=== PATIENT | male | born 1945 | race Hispanic/Latino ===

== ENCOUNTER 2017-07-26 11:34 | Emergency (ER) | payer OTHER ==
[~2017-07-26 11:34] MED LIST: AMLO1CAP12 PO; ASPI-1005 PO; ATOR10 PO; CIPR-279 PO; LANS1COM10 PO; METF500T6 PO
[2017-07-26] MEDS ORDERED: SODIUM CHLORIDE 0.9% 1000ML 1,000 ML IV ONE (12:03)
[2017-07-26] MEDS ORDERED: ACETAMINOPHEN EXTRA STRENGTH 500 MG TABLET ONE (12:03)
[2017-07-26] MEDS ORDERED: ONDANSETRON HCL 4 MG/2 ML VIAL ONE ×2 (12:03→12:43)
[2017-07-26 12:14] LABS: BASOPHILS % (AUTO) 0.5 % (0.0-5.0); EOSINOPHILS % (AUTO) 1.2 % (0.0-8.0); HEMATOCRIT 46.4 % (42-54); LYMPHOCYTES % (AUTO) 18.1 % (21.0-51.0); MEAN CORPUSCULAR HEMOGLOBIN 29.6 pg (27.0-33.0); MEAN CORPUSCULAR HGB CONC 33.4 g/dL (32.0-36.0); MEAN CORPUSCULAR VOLUME 88.6 fL (79-99); MONOCYTES % (AUTO) 6.1 % (3.0-13.0); NEUTROPHILS % (AUTO) 74.1 % (40.0-77.0); PLATELET COUNT (AUTO) 222 K/uL (130-400); RED BLOOD CELL COUNT(AUTO) 5.24 MIL/uL (4.50-6.20); RED CELL DISTRIBUTION WIDTH 15.1 % (11.0-15.5); WHITE BLOOD COUNT (AUTO) 13.9 K/uL (4.8-10.8)
[2017-07-26 12:34] LABS: CREATININE 0.8 mg/dL (0.5-1.5); POTASSIUM 3.4 mmol/L (3.5-5.1)
[2017-07-26 12:38] LABS: ALBUMIN 3.3 g/dL (3.5-5.0); BILIRUBIN,TOTAL 0.7 mg/dL (0.2-1.0); TOTAL PROTEIN, SERUM 7.1 g/dL (6.0-8.3)
[2017-07-26 15:42] LABS: APPEARANCE,URINE Clear (CLEAR); BILIRUBIN,URINE Negative (NEGATIVE); COLOR,URINE Yellow (YELLOW); GLUCOSE, URINE (UA) Negative (NEGATIVE); KETONES,URINE Negative (NEGATIVE); LEUKOCYTE ESTERASE ,URINE Negative (NEGATIVE); NITRATE,URINE Negative (NEGATIVE); OCCULT BLOOD,URINE Negative (NEGATIVE); PROTEIN,URINE Negative (NEGATIVE); UROBILINOGEN,URINE 0.2 mg/dL (0.2-1.0)
== END 2017-07-26 16:26 | disposition home or self-care (01) ==
LOC: EDH 11:34
DX: K52.9 Noninfective gastroenteritis and colitis, unspecified (principal); I25.10 Atherosclerotic heart disease of native coronary artery without angina pectoris; E11.9 Type 2 diabetes mellitus without complications; I10 Essential (primary) hypertension; E78.5 Hyperlipidemia, unspecified; Z98.890 Other specified postprocedural states
CPT/HCPCS: 36415; 74176; 80053; 81003; 82150; 83690; 85025; 93005; 96361; 96374; 96376; 99285; J2405 ×2; J7030

== ENCOUNTER 2017-08-10 09:20 | Inpatient (IN) | payer OTHER ==
[2017-08-10 09:44] LABS: BASOPHILS % (AUTO) 0.7 % (0.0-5.0); EOSINOPHILS % (AUTO) 0.7 % (0.0-8.0); HEMATOCRIT 41.6 % (42-54); LYMPHOCYTES % (AUTO) 27.6 % (21.0-51.0); MEAN CORPUSCULAR HEMOGLOBIN 29.7 pg (27.0-33.0); MEAN CORPUSCULAR VOLUME 87.5 fL (79-99); MONOCYTES % (AUTO) 7.6 % (3.0-13.0); NEUTROPHILS % (AUTO) 63.4 % (40.0-77.0); PLATELET COUNT (AUTO) 200 K/uL (130-400); RED BLOOD CELL COUNT(AUTO) 4.76 MIL/uL (4.50-6.20); WHITE BLOOD COUNT (AUTO) 13.2 K/uL (4.8-10.8)
[2017-08-10 10:00] LABS: CREATININE 0.7 mg/dL (0.5-1.5); POTASSIUM 3.5 mmol/L (3.5-5.1)
[2017-08-10 10:05] LABS: ALBUMIN 3.5 g/dL (3.5-5.0); BILIRUBIN,TOTAL 0.4 mg/dL (0.2-1.0); TOTAL PROTEIN, SERUM 7.4 g/dL (6.0-8.3)
[2017-08-10 10:57] LABS: B-TYPE NATRIURETIC PEPTIDE 278 pg/mL (0-100)
[2017-08-10 11:00] LABS: APPEARANCE,URINE Clear (CLEAR); BILIRUBIN,URINE Negative (NEGATIVE); COLOR,URINE Yellow (YELLOW); GLUCOSE, URINE (UA) Negative (NEGATIVE); KETONES,URINE Negative (NEGATIVE); LEUKOCYTE ESTERASE ,URINE Negative (NEGATIVE); NITRATE,URINE Negative (NEGATIVE); OCCULT BLOOD,URINE Negative (NEGATIVE); PROTEIN,URINE POS 1+ (NEGATIVE); UROBILINOGEN,URINE 0.2 mg/dL (0.2-1.0)
[2017-08-10 11:30] LABS: BACTERIA,URINE Rare /HPF (None Seen); RBC,URINE None Seen /HPF (0-1); SQUAMOUS EPITHELIAL CELL,UR None Seen /HPF (0-2); WBC,URINE None Seen /HPF (0-1)
[2017-08-10] MEDS ORDERED: ASPIRIN 325MG EC TAB 325 MG TABLET.DR PO ONE (12:20)
[2017-08-10] MEDS ORDERED: ONDANSETRON HCL 4 MG/2 ML VIAL IVP PRN (12:30)
[2017-08-10] MEDS ORDERED: HYDRALAZINE HCL 20 MG/ML VIAL IV PRN (12:30)
[2017-08-10] MEDS ORDERED: ACETAMINOPHEN 325 MG TAB PO PRN ×2 (12:30)
[2017-08-10 14:26] VITALS: BP 188/108
[2017-08-10] MEDS ORDERED: GLIP5TAB11 PO (14:30)
[2017-08-10] MEDS ORDERED: FISH1CAP27 PO (14:30)
[2017-08-10] MEDS ORDERED: METF10004 PO (14:30)
[2017-08-10 16:00] VITALS: BP 130/80
[2017-08-10 17:34] LABS: CREATINE KINASE MB 3.2 ng/mL (0.5-3.6); TROPONIN I 0.15 ng/mL (0.00-0.06)
[2017-08-10 20:14] VITALS: BP 142/84
[2017-08-10] MEDS ORDERED: POTASSIUM CHLORIDE 10% ELIXIR 20 MEQ/15 ML UDCUP PO PRN ×2 (22:15)
[2017-08-10] MEDS ORDERED: POTASSIUM CHLORIDE 20 MEQ ERTAB PO PRN ×2 (22:15)
[2017-08-10] MEDS ORDERED: GLUCAGON 1MG KIT 1 MG ML IM PRN (22:15)
[2017-08-10] MEDS ORDERED: POTASSIUM CHLORIDE 20MEQ/100ML 100 ML IV PRN ×2 (22:15)
[2017-08-10] MEDS ORDERED: LIDOCAINE HCL-MPF 1% 2ML VIAL IVP PRN ×2 (22:15)
[2017-08-10] MEDS ORDERED: DEXTROSE 50%-WATER 50 ML DISP.SYRIN IV PRN (22:15)
[2017-08-10] MEDS ORDERED: MORPHINE SULFATE 2 MG/ML 1ML SYG IVP PRN (22:15)
[2017-08-10] MEDS ORDERED: FAMOTIDINE 20MG TAB 20 MG TAB ONE (22:28)
[2017-08-10] MEDS ORDERED: NITROGLYCERIN 1GM/1 INCH PACKET TD ONE (22:32)
[2017-08-10] MEDS ORDERED: SODIUM CHLORIDE 0.9% 1000ML 1,000 ML IV ONE (22:33)
[2017-08-10] MEDS ORDERED: POTASSIUM CHLORIDE 20 MEQ ERTAB PO ONE (22:34)
[2017-08-10] MEDS ORDERED: FUROSEMIDE 10 MG/ML 2ML VIAL ONE (22:39)
[2017-08-10] MEDS: INSULIN HUMULIN R 100 UNIT/ML 3ML SQ SCH (23:09)
[2017-08-10] MEDS: SODIUM CHLORIDE 0.9% 1000ML 1,000 ML IV SCH (23:10)
[2017-08-10] MEDS: FAMOTIDINE 20MG TAB 20 MG TAB PO SCH (23:10)
[2017-08-10] MEDS: FUROSEMIDE 10 MG/ML 2ML VIAL IV SCH (23:10)
[2017-08-10] MEDS: NITROGLYCERIN 1GM/1 INCH PACKET TD SCH (23:10)
[2017-08-10 23:41] LABS: CREATINE KINASE MB 2.4 ng/mL (0.5-3.6); TROPONIN I 0.15 ng/mL (0.00-0.06)
[2017-08-11] VITALS (7 sets, daily range): BP systolic 101–165; BP diastolic 34–107
[2017-08-11 03:44] LABS: HEMATOCRIT 39.7 % (42-54); MEAN CORPUSCULAR HEMOGLOBIN 30.4 pg (27.0-33.0); MEAN CORPUSCULAR HGB CONC 34.4 g/dL (32.0-36.0); MEAN CORPUSCULAR VOLUME 88.1 fL (79-99); PLATELET COUNT (AUTO) 187 K/uL (130-400); RED BLOOD CELL COUNT(AUTO) 4.51 MIL/uL (4.50-6.20); RED CELL DISTRIBUTION WIDTH 14.6 % (11.0-15.5); WHITE BLOOD COUNT (AUTO) 12.2 K/uL (4.8-10.8)
[2017-08-11 03:49] LABS: CREATININE 0.8 mg/dL (0.5-1.5); POTASSIUM 4.2 mmol/L (3.5-5.1)
[2017-08-11 04:15] LABS: BAND NEUTROPHILS % (MANUAL) 1 % (0-2); LYMPHOCYTES % (MANUAL) 30 % (22-44); MAN.DIFF COMMENT-IMPRESSION MANUAL DIFFERENTIAL; MONOCYTES % (MANUAL) 12 % (2-9); PLATELET MORPHOLOGY COMMENT ADEQUATE; REACTIVE LYMPHOCYTES 4 % (0-0); SEGMENTED NEUTROPHILS % 53 % (40-70)
[2017-08-11] MEDS: NITROGLYCERIN 1GM/1 INCH PACKET TD SCH ×3 (04:15→17:59)
[2017-08-11] MEDS: GLIPIZIDE 5 MG TABLET PO SCH (06:06)
[2017-08-11] MEDS: INSULIN HUMULIN R 100 UNIT/ML 3ML SQ SCH ×3 (06:39→22:34)
[2017-08-11] MEDS: METFORMIN HCL 500 MG TABLET PO SCH ×2 (08:00→17:59)
[2017-08-11] MEDS ORDERED: AMLODIPINE-BENAZEPRIL 5-20 MG PO SCH (09:00)
[2017-08-11] MEDS ORDERED: ASPIRIN 325 MG TABLET PO SCH (09:00)
[2017-08-11] MEDS: ASPIRIN 81 MG EC TAB PO SCH (10:41)
[2017-08-11] MEDS: BENAZEPRIL HCL 10 MG TABLET PO SCH (10:42)
[2017-08-11] MEDS: AMLODIPINE BESYLATE 5 MG TAB PO SCH (10:42)
[2017-08-11] MEDS: FAMOTIDINE 20MG TAB 20 MG TAB PO SCH ×2 (10:43→21:57)
[2017-08-11] MEDS: ENOXAPARIN SODIUM 40 MG/0.4 ML SYRINGE SQ SCH (10:48)
[2017-08-11] MEDS ORDERED: REGADENOSON 0.4 MG/5 ML PF SYG IVP SCH (11:00)
[2017-08-11] MEDS: SODIUM CHLORIDE 0.9% 1000ML 1,000 ML IV SCH (11:35)
[2017-08-11] MEDS: ATORVASTATIN CALCIUM 20 MG TABLET PO SCH (21:57)
[2017-08-11] MEDS: FUROSEMIDE 10 MG/ML 2ML VIAL IV SCH (22:15)
[2017-08-12] MEDS: SODIUM CHLORIDE 0.9% 1000ML 1,000 ML IV SCH ×2 (00:55→14:15)
[2017-08-12] MEDS: NITROGLYCERIN 1GM/1 INCH PACKET TD SCH ×5 (04:15→22:15)
[2017-08-12 04:34] VITALS: BP 135/83
[2017-08-12] MEDS: INSULIN HUMULIN R 100 UNIT/ML 3ML SQ SCH ×4 (06:32→21:00)
[2017-08-12] MEDS: GLIPIZIDE 5 MG TABLET PO SCH (06:36)
[2017-08-12] MEDS: METFORMIN HCL 500 MG TABLET PO SCH ×2 (08:00→17:00)
[2017-08-12 08:09] VITALS: BP 139/75
[2017-08-12] MEDS: ASPIRIN 81 MG EC TAB PO SCH (09:00)
[2017-08-12] MEDS: ENOXAPARIN SODIUM 40 MG/0.4 ML SYRINGE SQ SCH (09:00)
[2017-08-12 10:19] LABS: INR 1.04 (0.85-1.15); PARTIAL THROMBOPLASTIN TIME 26.5 SEC (26.3-35.5); PROTHROMBIN TIME 10.9 SEC (9.6-11.6)
[2017-08-12] MEDS: BENAZEPRIL HCL 10 MG TABLET PO SCH (10:48)
[2017-08-12] MEDS: AMLODIPINE BESYLATE 5 MG TAB PO SCH (10:48)
[2017-08-12] MEDS: FAMOTIDINE 20MG TAB 20 MG TAB PO SCH ×2 (10:48→21:14)
[2017-08-12] MEDS ORDERED: FUROSEMIDE 10 MG/ML 2ML VIAL IV SCH (11:15)
[2017-08-12 12:16] VITALS: BP 162/88
[2017-08-12 16:00] VITALS: BP 124/82
[2017-08-12 19:55] VITALS: BP 113/72
[2017-08-12] MEDS: ATORVASTATIN CALCIUM 20 MG TABLET PO SCH (21:14)
[2017-08-12] MEDS: FUROSEMIDE 10 MG/ML 2ML VIAL IV SCH (22:15)
[2017-08-12 23:13] VITALS: BP 133/78
[2017-08-13] VITALS (11 sets, daily range): BP systolic 111–155; BP diastolic 62–87
[2017-08-13] MEDS: SODIUM CHLORIDE 0.9% 1000ML 1,000 ML IV SCH ×2 (03:35→18:24)
[2017-08-13] MEDS: NITROGLYCERIN 1GM/1 INCH PACKET TD SCH ×4 (04:15→22:27)
[2017-08-13 05:06] LABS: CREATININE 0.9 mg/dL (0.5-1.5); POTASSIUM 3.9 mmol/L (3.5-5.1)
[2017-08-13] MEDS ORDERED: LIDOCAINE HCL-MPF 2% 5ML VIAL ONE ×2 (07:18→07:22)
[2017-08-13] MEDS ORDERED: HEPARIN SODIUM 1000UNIT/ML 10ML VIAL ONE (07:19)
[2017-08-13] MEDS ORDERED: IOHEXOL 350 MG/ML 100ML INFUS..BTL IV ONE (07:19)
[2017-08-13] MEDS: INSULIN HUMULIN R 100 UNIT/ML 3ML SQ SCH ×4 (07:30→22:26)
[2017-08-13] MEDS: GLIPIZIDE 5 MG TABLET PO SCH (07:30)
[2017-08-13] MEDS: METFORMIN HCL 500 MG TABLET PO SCH ×2 (08:00→14:23)
[2017-08-13] MEDS ORDERED: LABETALOL HCL 5 MG/ML 20ML VIAL IV ONE (08:01)
[2017-08-13] MEDS: ENOXAPARIN SODIUM 40 MG/0.4 ML SYRINGE SQ SCH (09:00)
[2017-08-13] MEDS: ASPIRIN 81 MG EC TAB PO SCH (09:00)
[2017-08-13] MEDS: AMLODIPINE BESYLATE 5 MG TAB PO SCH (09:19)
[2017-08-13] MEDS: BENAZEPRIL HCL 10 MG TABLET PO SCH (09:19)
[2017-08-13] MEDS: FAMOTIDINE 20MG TAB 20 MG TAB PO SCH ×2 (09:19→21:23)
[2017-08-13] MEDS ORDERED: ACETAMINOPHEN-CODEINE 300/30MG TAB PO PRN (11:30)
[2017-08-13] MEDS ORDERED: ISOVUE-370 50ML VIAL IV ONE (12:00)
[2017-08-13] MEDS: ATORVASTATIN CALCIUM 20 MG TABLET PO SCH (21:23)
[2017-08-14] VITALS: BP 144/80
[2017-08-14 04:03] VITALS: BP 138/73
[2017-08-14] MEDS: NITROGLYCERIN 1GM/1 INCH PACKET TD SCH (05:02)
[2017-08-14] MEDS: INSULIN HUMULIN R 100 UNIT/ML 3ML SQ SCH (05:46)
[2017-08-14] MEDS: SODIUM CHLORIDE 0.9% 1000ML 1,000 ML IV SCH (06:14)
[2017-08-14] MEDS: GLIPIZIDE 5 MG TABLET PO SCH (06:38)
[2017-08-14 07:00] VITALS: BP 146/76
[2017-08-14] MEDS: METFORMIN HCL 500 MG TABLET PO SCH (07:51)
[2017-08-14] MEDS ORDERED: ISOSORBIDE MONO 30MG TAB SR PO SCH (09:00)
[2017-08-14] MEDS ORDERED: FUROSEMIDE 20 MG TABLET PO SCH (09:00)
[2017-08-14] MEDS: FAMOTIDINE 20MG TAB 20 MG TAB PO SCH (09:33)
[2017-08-14] MEDS: BENAZEPRIL HCL 10 MG TABLET PO SCH (09:34)
[2017-08-14] MEDS: AMLODIPINE BESYLATE 5 MG TAB PO SCH (09:34)
[2017-08-14] MEDS: ASPIRIN 81 MG EC TAB PO SCH (09:48)
[2017-08-14] MEDS ORDERED: FURO20TA6 PO (10:42)
[2017-08-14] MEDS ORDERED: Isosorbide Mono 30MG Tab Sr PO (10:42)
[2017-08-14 11:00] VITALS: BP 122/63
== END 2017-08-14 11:45 | disposition home or self-care (01) | DRG 286 ==
LOC: EDH 09:20 → EDHIP 12:00 → 2AH 14:08
PROVIDERS: ADMIT Internal Medicine Nephrology; ATTEND Internal Medicine Nephrology
PROC: 4A023N7 Measurement of Cardiac Sampling and Pressure, Left Heart, Percutaneous Approach (ICD-10-PCS; principal; 2017-08-13)
PROC: B2111ZZ Fluoroscopy of Multiple Coronary Arteries using Low Osmolar Contrast (ICD-10-PCS; 2017-08-13)
PROC: B2131ZZ Fluoroscopy of Multiple Coronary Artery Bypass Grafts using Low Osmolar Contrast (ICD-10-PCS; 2017-08-13)
PROC: B2151ZZ Fluoroscopy of Left Heart using Low Osmolar Contrast (ICD-10-PCS; 2017-08-13)
DX: R07.9 Chest pain, unspecified (principal); I50.21 Acute systolic (congestive) heart failure; I11.0 Hypertensive heart disease with heart failure; I25.5 Ischemic cardiomyopathy; I08.1 Rheumatic disorders of both mitral and tricuspid valves; E11.9 Type 2 diabetes mellitus without complications; M19.90 Unspecified osteoarthritis, unspecified site; I25.10 Atherosclerotic heart disease of native coronary artery without angina pectoris; I44.0 Atrioventricular block, first degree; E78.5 Hyperlipidemia, unspecified; Z87.891 Personal history of nicotine dependence; Z82.49 Family history of ischemic heart disease and other diseases of the circulatory system; Z95.1 Presence of aortocoronary bypass graft
CPT/HCPCS: 36415; 71045; 78452; 80048; 80053; 81001; 82550; 82553; 82948; 83874; 83880; 84484; 85025; 85610; 85730; 93005; 93017; 93306; 93459; 96374; A9500; C1769; C1894; J0360; J1644; J1650; J1815; J1940; J2785; J3490; J7030; Q9967

== ENCOUNTER 2018-04-17 21:50 | Inpatient (IN) | payer OTHER ==
[~2018-04-17] VITALS: Ht 152.4 cm; Wt 60.0 kg
[~2018-04-17 21:50] MED LIST changes: -CIPR-279 PO; +FISH1CAP27 PO; +FURO20TA6 PO; +Isosorbide Mono 30MG Tab Sr PO; -LANS1COM10 PO; +LISI10TA7 PO; +METF-446 PO; -METF500T6 PO
[2018-04-17 22:44] LABS: POTASSIUM 3.6 mmol/L (3.5-5.1)
[2018-04-17 22:48] LABS: BASOPHILS % (AUTO) 0.4 % (0.0-5.0); EOSINOPHILS % (AUTO) 0.3 % (0.0-8.0); LYMPHOCYTES % (AUTO) 18.2 % (21.0-51.0); MEAN CORPUSCULAR HGB CONC 33.1 g/dL (32.0-36.0); MEAN CORPUSCULAR VOLUME 90.7 fL (79-99); MONOCYTES % (AUTO) 7.6 % (3.0-13.0); NEUTROPHILS % (AUTO) 73.5 % (40.0-77.0); PLATELET COUNT (AUTO) 201 K/uL (130-400); RED BLOOD CELL COUNT(AUTO) 4.52 MIL/uL (4.50-6.20); RED CELL DISTRIBUTION WIDTH 14.8 % (11.0-15.5); WHITE BLOOD COUNT (AUTO) 11.1 K/uL (4.8-10.8)
[2018-04-17 22:49] LABS: ALBUMIN 3.8 g/dL (3.5-5.0); BILIRUBIN,TOTAL 0.4 mg/dL (0.2-1.0); TOTAL PROTEIN, SERUM 7.4 g/dL (6.0-8.3)
[2018-04-17 22:52] LABS: INR 1.05 (0.85-1.15); PARTIAL THROMBOPLASTIN TIME 26.8 SEC (26.3-35.5)
[2018-04-17 23:19] LABS: APPEARANCE,URINE Clear (CLEAR); BILIRUBIN,URINE Negative (NEGATIVE); COLOR,URINE Yellow (YELLOW); GLUCOSE, URINE (UA) >=1000 mg/dL (NEGATIVE); KETONES,URINE Negative (NEGATIVE); LEUKOCYTE ESTERASE ,URINE Negative (NEGATIVE); NITRATE,URINE Negative (NEGATIVE); OCCULT BLOOD,URINE Negative (NEGATIVE); PROTEIN,URINE Negative (NEGATIVE); UROBILINOGEN,URINE 0.2 mg/dL (0.2-1.0)
[2018-04-17 23:33] LABS: BACTERIA,URINE Rare /HPF (None Seen); RBC,URINE 0-1 /HPF (0-1); WBC,URINE 0-1 /HPF (0-1)
[2018-04-18] MEDS ORDERED: ASPIRIN 325 MG TABLET ONE (01:36)
[2018-04-18] MEDS ORDERED: GLUCAGON 1MG KIT 1 MG ML IM PRN (02:15)
[2018-04-18] MEDS ORDERED: ONDANSETRON HCL 4 MG/2 ML VIAL IVP PRN (02:15)
[2018-04-18] MEDS ORDERED: ACETAMINOPHEN 325 MG TAB PO PRN (02:15)
[2018-04-18] MEDS ORDERED: DEXTROSE 50%-WATER 50 ML DISP.SYRIN IV PRN (02:15)
[2018-04-18] MEDS ORDERED: SODIUM CHLORIDE 0.9% 1000ML 1,000 ML IV SCH (03:00)
[2018-04-18] MEDS: INSULIN R PO SS1 SQ SCH ×4 (07:30→21:00)
[2018-04-18] MEDS ORDERED: IOHEXOL 350 MG/ML 100ML INFUS..BTL IV ONE (07:32)
[2018-04-18 08:20] LABS: TROPONIN I 0.24 ng/mL (0.00-0.06)
[2018-04-18] MEDS ORDERED: PANTOPRAZOLE 40 MG/VIAL IVP SCH (09:00)
[2018-04-18] MEDS: ASPIRIN 325 MG TABLET PO SCH (09:00)
--- NOTE | 2018-04-18 12:00 | NUR ---
BEDSIDE SWALLOW STUDY COMPLETE. -S/S OF ASPIRATION OBSERVED. RECOMMEND REGULAR DIET WITH THIN LIQUIDS PATIENT INFORMATION: PATIENT IS A 72 YEAR OLD, MALE REFERRED FOR A BEDSIDE SWALLOW STUDY SECONDARY TO A DIAGNOSIS OF TIA. PATIENT WITH SPOUSE AT BEDSIDE REPORTING A PMH SIGNIFICANT FOR: DIABETES MELLITUS II, HYPERGLYCEMIA, MYOCARDIAL INFARCTION, CONGESTIVE HEART FAILURE, AND HTN. PATIENT ADMITTED SECONDARY TO TIA. PATIENT ALERT AND COOPERATIVE DURING EVALUATION. EVALUATION: PATIENT PRESENTS WITH NORMAL SWALLOW FUNCTION AND EFFICIENCY. PATIENT WITH ADEQUATE ORAL MOTOR STRENGTH AND COORDINATION, ADEQUATE BOLUS MANIPULATION, GOOD LARYNGEAL ELEVATION AND EXCURSION, AND TIMELY PHARYNGEAL RESPONSE TIME. NO OVERT S/S OF ASPIRATION OBSERVED DURING EVALUATION. RECOMMENDATIONS: 1. REGULAR DIET 2. THIN LIQUIDS 3. PILLS WHOLE WITH LIQUIDS EDUCATION: RESULTS OF EVALUATION WERE REVIEWED WITH PATIENT AND SPOUSE. ALL QUESTIONS WERE ANSWERED. G-CODES: [id number] Addendum: 04/18/[address] KARAN ROMANO Amended: Links added.
[2018-04-18] MEDS ORDERED: INSULIN HUMULIN R 100 UNIT/ML 3ML ONE (12:38)
[2018-04-18] MEDS ORDERED: ISOSORBIDE MONO 30MG TAB SR PO ONE (13:37)
[2018-04-18] MEDS ORDERED: FUROSEMIDE 20 MG TABLET ONE (13:37)
[2018-04-18] MEDS ORDERED: METOPROLOL TARTRATE 25 MG TAB ONE (13:38)
[2018-04-18] MEDS ORDERED: METFORMIN HCL 500 MG TABLET ONE (13:38)
[2018-04-18] MEDS ORDERED: LISINOPRIL 5 MG TABLET ONE (13:55)
[2018-04-18 14:11] LABS: TROPONIN I 0.2 ng/mL (0.00-0.06)
--- NOTE | 2018-04-18 16:49 | NUR ---
ARRIVAL TO FLOOR AAOX3 DENIES CP DENIES SOB DENIES NV. NO COMPLAINTS. AMBULATED TO RESTROOM WITH ASSISTANCE. FAMILY MEMBER IS AT BEDSIDE. ADMISSION PACKET DONE IN ER.
[2018-04-18] MEDS: METFORMIN HCL 500 MG TABLET PO SCH (16:55)
[2018-04-18 16:57] VITALS: BP 142/92
--- NOTE | 2018-04-18 18:22 | NUR ---
STATUS NO COMPLAINTS. CALL LIGHT WITHIN REACH.
[2018-04-18 20:14] VITALS: BP 136/78
[2018-04-18] MEDS: SIMVASTATIN 20 MG TABLET PO SCH (20:29)
--- NOTE | 2018-04-18 21:15 | NUR ---
PT IN BED, AT BEDSIDE. PT IS STABLE. ROOM AIR. NO DISTRESS NOTED. NO PAIN STATED. ABLE TO AMBULATE. VPACED 70 PER TELE MONITOR. ABLE TO STATE CONCERNS. NO PAIN OR SOB. NO INSULIN REQUIRED. ABLE TO TAKE MEDICATIONS DIRECTED. STATES HE FEELS GREAT. AAOX3. PERRLA. NO IV FLUIDS. IV PATENT.
[2018-04-19] VITALS: BP 128/80
[2018-04-19 04:44] VITALS: BP 140/82
[2018-04-19 05:19] LABS: BASOPHILS % (AUTO) 0.5 % (0.0-5.0); EOSINOPHILS % (AUTO) 1.2 % (0.0-8.0); HEMATOCRIT 39.9 % (42-54); LYMPHOCYTES % (AUTO) 44.2 % (21.0-51.0); MEAN CORPUSCULAR HEMOGLOBIN 29.9 pg (27.0-33.0); MEAN CORPUSCULAR HGB CONC 32.8 g/dL (32.0-36.0); MEAN CORPUSCULAR VOLUME 91.1 fL (79-99); MONOCYTES % (AUTO) 8.6 % (3.0-13.0); NEUTROPHILS % (AUTO) 45.5 % (40.0-77.0); PLATELET COUNT (AUTO) 179 K/uL (130-400); RED BLOOD CELL COUNT(AUTO) 4.38 MIL/uL (4.50-6.20); RED CELL DISTRIBUTION WIDTH 14.7 % (11.0-15.5); WHITE BLOOD COUNT (AUTO) 8.7 K/uL (4.8-10.8)
[2018-04-19 05:32] LABS: CREATININE 0.7 mg/dL (0.5-1.5); POTASSIUM 3.9 mmol/L (3.5-5.1)
[2018-04-19] MEDS: INSULIN R PO SS1 SQ SCH ×4 (06:30→20:40)
[2018-04-19] MEDS: FUROSEMIDE 20 MG TABLET PO SCH (07:44)
[2018-04-19] MEDS: ASPIRIN 325 MG TABLET PO SCH (07:44)
[2018-04-19] MEDS: METFORMIN HCL 500 MG TABLET PO SCH ×2 (07:44→16:29)
[2018-04-19] MEDS: ISOSORBIDE MONO 30MG TAB SR PO SCH (07:45)
[2018-04-19] MEDS: PANTOPRAZOLE SODIUM 40 MG TABLET.DR PO SCH (07:46)
[2018-04-19 07:59] VITALS: BP 151/92
--- NOTE | 2018-04-19 08:00 | NUR ---
ASSESSMENT PT IS AAOX4 DENIES CP DENIES SOB DENIES NV NO COMPLAINTS. SITTING UPRIGHT IN CHAIR. DENIES NUMBNESS DENIES TINGLING TO ALL EXTREMITIES. PENDING ECHO. FAMILY IS AT BEDSIDE.
[2018-04-19] MEDS ORDERED: LISINOPRIL 10 MG TABLET PO SCH (09:00)
[2018-04-19 11:52] VITALS: BP 123/88
[2018-04-19] MEDS: GABAPENTIN 100 MG CAPSULE PO SCH ×2 (14:11→20:44)
[2018-04-19 15:32] VITALS: BP 132/89
--- NOTE | 2018-04-19 16:56 | NUR ---
cm note met with patient and states resides at home with spouse, uses walker and cane, attends OP PT 2Xwk. for back issues. states able to do own personal care and adls. pt drives. no dc needs. dc plan home. Addendum: 04/19/18 at 1657 by DOLORES STYLES CM Amended: Links added.
--- NOTE | 2018-04-19 19:24 | NUR ---
ASSESSMENT NOTE AAOX3 BREATHING REGULAR AND UNLABORED ON ROOM AIR. ASSESSMENT COMPLETED. PATIENT STATES THAT HAS HAD MILD WEAKNESS TO RIGHT LOWER EXTREMITY. DENIES PAIN. PLAN OF CARE DISCUSSED WITH PATIENT. REINFORCED SAFETY INSTRUCTION. NO ACUTE SIGNS OR SYMPTOMS OF DISTRESS NOTED. CALL LIGHT IN REACH
[2018-04-19 19:47] VITALS: BP 133/84
[2018-04-19] MEDS: SIMVASTATIN 20 MG TABLET PO SCH (20:43)
[2018-04-20] VITALS: BP 152/87
[2018-04-20 04:00] VITALS: BP 159/96
[2018-04-20] MEDS: INSULIN R PO SS1 SQ SCH ×3 (06:13→16:30)
[2018-04-20] MEDS: PANTOPRAZOLE SODIUM 40 MG TABLET.DR PO SCH (06:14)
[2018-04-20 07:34] VITALS: BP 165/92
[2018-04-20] MEDS ORDERED: AMLODIPINE BESYLATE 5 MG TAB PO SCH (09:00)
[2018-04-20] MEDS ORDERED: AMLODIPINE-BENAZEPRIL 5-20 MG PO SCH (09:00)
[2018-04-20] MEDS ORDERED: BENAZEPRIL HCL 10 MG TABLET PO SCH (09:00)
[2018-04-20] MEDS ORDERED: APIXABAN 5 MG TABLET PO SCH (09:00)
[2018-04-20] MEDS: FUROSEMIDE 20 MG TABLET PO SCH (09:09)
[2018-04-20] MEDS: ASPIRIN 325 MG TABLET PO SCH (09:09)
[2018-04-20] MEDS: GABAPENTIN 100 MG CAPSULE PO SCH ×2 (09:09→14:36)
[2018-04-20] MEDS: ISOSORBIDE MONO 30MG TAB SR PO SCH (09:10)
[2018-04-20] MEDS: METFORMIN HCL 500 MG TABLET PO SCH ×2 (09:11→16:50)
[2018-04-20 11:46] VITALS: BP 143/85
--- NOTE | 2018-04-20 16:01 | NUR ---
PER DR WADE, OK TO DISCHARGE HOME
--- NOTE | 2018-04-20 16:09 | NUR ---
Nutrition intervention: Nutrition notification for education. Pt admitted for TIA, currently on [id number] diet with 100% intake. Pt reports good diet history which consists of lean meats, lots of vegetables and high fiber intake. Multiple recipe examples provided by pt and his who was at bedside. RD has encouraged pt to continue a heart healthy diet which consisted of low sodium, high fiber diet. Pt and have verbalized understanding and will continue to follow a heart healthy diet. Recommendations: Modify diet therapy with heart healthy diet. Consult RD as nutrition concerns arise. Addendum: 04/20/18 at [address] RD Amended: Links added.
[2018-04-20 16:36] VITALS: BP 140/79
[2018-04-20] MEDS ORDERED: METO25TA6 PO (17:30)
[2018-04-20] MEDS ORDERED: APIX5TAB PO (17:30)
[2018-04-20] MEDS ORDERED: TRAM50TA4 PO (17:30)
--- NOTE | 2018-04-20 19:47 | NUR ---
Outgoing nurse reported pt. is for discharge home pending transportation .IV was removed and all paper works done.Pt.left @0730 pm stable condition with family..
== END 2018-04-20 19:48 | disposition home or self-care (01) | DRG 69 ==
LOC: EDH 21:50 → EDHIP 04-18 01:45 → 2DH 04-18 16:32
PROVIDERS: ADMIT Internal Medicine Critical Care Medicine; ATTEND Internal Medicine Critical Care Medicine
DX: G45.9 Transient cerebral ischemic attack, unspecified (principal); I42.9 Cardiomyopathy, unspecified; I25.10 Atherosclerotic heart disease of native coronary artery without angina pectoris; E11.9 Type 2 diabetes mellitus without complications; I10 Essential (primary) hypertension; E78.5 Hyperlipidemia, unspecified; I25.5 Ischemic cardiomyopathy; I48.0 Paroxysmal atrial fibrillation; Z79.01 Long term (current) use of anticoagulants; Z95.1 Presence of aortocoronary bypass graft; Z87.891 Personal history of nicotine dependence; Z95.5 Presence of coronary angioplasty implant and graft; Z95.0 Presence of cardiac pacemaker
CPT/HCPCS: 36415; 70450; 70496; 70498; 71045; 80048; 80053; 81001; 82550; 82948; 83874; 84484; 85025; 85610; 85730; 92610; 93005; 93306; C9113; G0378; J1815; J2405; Q9967

== ENCOUNTER 2019-02-23 08:59 | Emergency (ER) | payer OTHER ==
[~2019-02-23 08:59] MED LIST changes: -AMLO1CAP12 PO; +APIX5TAB PO; +BENA40TA9 PO; +LEVO500T2 PO; -LISI10TA7 PO; +METO25TA6 PO
== END 2019-02-23 10:05 | disposition home or self-care (01) ==
LOC: EDH 08:59
DX: R60.0 Localized edema (principal); I10 Essential (primary) hypertension; E78.5 Hyperlipidemia, unspecified; I25.810 Atherosclerosis of coronary artery bypass graft(s) without angina pectoris; Z87.891 Personal history of nicotine dependence
CPT/HCPCS: 99281

== ENCOUNTER → 2019-03-15 | Outpatient (CLI) | payer OTHER | END | disposition home or self-care (01) | LOC: RAH 09:00 | PROVIDERS: ATTEND Internal Medicine | DX: I70.203 Unspecified atherosclerosis of native arteries of extremities, bilateral legs (principal); I70.213 Atherosclerosis of native arteries of extremities with intermittent claudication, bilateral legs | CPT/HCPCS: 93925 ==

== ENCOUNTER → 2019-03-25 | Outpatient (CLI) | payer OTHER ==
[~2019-03-25] MED LIST changes: +IOHEXOL-350 50ML VIAL IV ONE
== END | disposition home or self-care (01) ==
LOC: RAH 10:00
PROVIDERS: ATTEND Internal Medicine Cardiovascular Disease
DX: M25.462 Effusion, left knee (principal); M25.461 Effusion, right knee; K40.90 Unilateral inguinal hernia, without obstruction or gangrene, not specified as recurrent; I70.0 Atherosclerosis of aorta; I73.9 Peripheral vascular disease, unspecified
CPT/HCPCS: 75635; Q9967

== ENCOUNTER 2019-04-02 05:45 | Day surgery (SDC) | payer OTHER ==
[2019-04-01 08:36] LABS: BASOPHILS % (AUTO) 0.5 % (0.0-5.0); EOSINOPHILS % (AUTO) 1.2 % (0.0-8.0); HEMATOCRIT 47.6 % (42-54); LYMPHOCYTES % (AUTO) 35.5 % (21.0-51.0); MEAN CORPUSCULAR HEMOGLOBIN 28.7 pg (27.0-33.0); MEAN CORPUSCULAR HGB CONC 31.9 g/dL (32.0-36.0); MONOCYTES % (AUTO) 7.5 % (3.0-13.0); NEUTROPHILS % (AUTO) 54.9 % (40.0-77.0); PLATELET COUNT (AUTO) 201 K/uL (130-400); RED BLOOD CELL COUNT(AUTO) 5.29 MIL/uL (4.50-6.20); RED CELL DISTRIBUTION WIDTH 13.8 % (11.0-15.5); WHITE BLOOD COUNT (AUTO) 9.8 K/uL (4.8-10.8)
[2019-04-01 08:41] VITALS: BP 137/87
[2019-04-01 08:41] LABS: APPEARANCE,URINE Clear (CLEAR); BILIRUBIN,URINE Negative (NEGATIVE); COLOR,URINE Yellow (YELLOW); GLUCOSE, URINE (UA) Negative (NEGATIVE); KETONES,URINE Negative (NEGATIVE); LEUKOCYTE ESTERASE ,URINE Trace (NEGATIVE); NITRATE,URINE Negative (NEGATIVE); OCCULT BLOOD,URINE Negative (NEGATIVE); PROTEIN,URINE POS 1+ mg/dL (NEGATIVE); UROBILINOGEN,URINE 0.2 mg/dL (0.2-1.0)
[2019-04-01 08:44] LABS: CREATININE 0.8 mg/dL (0.5-1.5); POTASSIUM 4.2 mmol/L (3.5-5.1)
[2019-04-01 08:45] LABS: INR 1.07 (0.85-1.15); PARTIAL THROMBOPLASTIN TIME 28.9 SEC (26.3-35.5); PROTHROMBIN TIME 11.2 SEC (9.6-11.6)
--- NOTE | 2019-04-01 08:59 | NUR ---
RE: ROCCO CALLED DR HOLT AND INFORMED HIM THAT PATIENT TOOK ELIQUIS LAST NIGHT AT 9PM. PER DR HOLT, HAVE PATIENT STOP/HOLD ELIQUIS AND CONTINUE WITH SCHEDULED ANGIOGRAM ORDERED.
[2019-04-01 09:25] LABS: RBC,URINE 0-1 /HPF (0-1)
[2019-04-01 09:26] LABS: BACTERIA,URINE None Seen /HPF (None Seen); MUCUS,URINE Moderate LPF (None Seen); SQUAMOUS EPITHELIAL CELL,UR 0-2 /HPF (0-2)
[~2019-04-02] VITALS: Ht 153.7 cm; Wt 59.9 kg
[2019-04-02] VITALS (9 sets, daily range): BP systolic 111–159; BP diastolic 74–92
[~2019-04-02 05:45] MED LIST changes: -ATOR10 PO; +FURO20TA4 PO; -FURO20TA6 PO; -IOHEXOL-350 50ML VIAL IV ONE; +ISOS30TA6 PO; -Isosorbide Mono 30MG Tab Sr PO; -LEVO500T2 PO; +SODIUM CHLORIDE 0.9% 500ML 500 ML IV SCH; +TERB250T51 PO; +VITAMIN PO
[2019-04-02] MEDS ORDERED: SODIUM CHLORIDE 0.9% 1000ML 1,000 ML IV ONE (06:28)
[2019-04-02] MEDS ORDERED: MIDAZOLAM HCL 1 MG/ML 2ML VIAL ONE (07:13)
[2019-04-02] MEDS ORDERED: FENTANYL CITRATE PF 50 MCG/1 ML 2ML VIAL ONE (07:13)
[2019-04-02] MEDS ORDERED: NITROGLYCERIN 2 MG/VIAL VIAL IV ONE ×2 (07:13→07:16)
[2019-04-02] MEDS ORDERED: HEPARIN SODIUM 1000UNIT/ML 10ML VIAL ONE (07:13)
[2019-04-02] MEDS ORDERED: IODIXANOL 320 MG/ML 100 ML VIAL ONE (07:14)
[2019-04-02] MEDS ORDERED: LIDOCAINE HCL 2% 20ML ONE (07:14)
--- NOTE | 2019-04-02 07:15 | NUR ---
PROCEDURE PT TAKEN TO [facility] FOR SCHEDULED PROCEDURE
[2019-04-02] MEDS ORDERED: CLOPIDOGREL BISULFATE 300 MG TAB ONE (07:59)
[2019-04-02] MEDS ORDERED: ASPIRIN 325MG EC TAB 325 MG TABLET.DR PO ONE (07:59)
[2019-04-02] MEDS ORDERED: NICARDIPINE HCL 25 MG/10 ML ML IV ONE (08:08)
[2019-04-02] MEDS ORDERED: SODIUM CHLORIDE 0.9% 1000ML 500 ML IV SCH (09:53)
--- NOTE | 2019-04-02 10:20 | NUR ---
POST RECEIVED PT FROM VASCULAR NURSE S/P PERIPHERAL ANGIOGRAM . SEE POST CATH ASSESSMENT. VS STABLE ON ARRIVAL. PT INSTRUCTED TO KEEP BEDREST FOR 4 HRS. PLAN OF CARE DISCUSS WITH PATIENT/ SPOUSE. CALL LIGHT WITHIN REACH.
--- NOTE | 2019-04-02 13:55 | NUR ---
DC DC INSTRUCTIONS GIVEN TO PT / SPOUSE WITH RX, INSTRUCTED ON NEW MED REGIMEN, AND TO F/U WITH DR. HOLT. PT /SPOUSE VERBALIZED UNDERSTANDING. LEFT GROIN WITH DRESSING DRY AND INTACT, NO BLEEDING OR HEMATOMA TO SITE
--- NOTE | 2019-04-02 14:00 | NUR ---
DC PT WAITING ON RIDE TO GO HOME . PT SITTING IN CHAIR, NO DISTRESS NOTED. LEFT GROIN DRESSING DRY AND INTACT,NO BLEEDING OR HEMATOMA TO SITE
--- NOTE | 2019-04-02 15:00 | NUR ---
DC PT DC HOME VIA WC,NO DISTRESS NOTED. PT DENIED ANY PAIN OR DISCOMFORTS.
[2019-05-11] MEDS ORDERED: MUPI22OI2 TP (22:35)
[2019-05-11] MEDS ORDERED: MECO10005 PO (22:35)
== END 2019-04-02 15:00 | disposition home or self-care (01) ==
LOC: DAH 05:45
PROVIDERS: ATTEND Internal Medicine Cardiovascular Disease
DX: I70.211 Atherosclerosis of native arteries of extremities with intermittent claudication, right leg (principal); I11.0 Hypertensive heart disease with heart failure; I50.22 Chronic systolic (congestive) heart failure; E11.9 Type 2 diabetes mellitus without complications; E78.5 Hyperlipidemia, unspecified; I25.10 Atherosclerotic heart disease of native coronary artery without angina pectoris; Z79.01 Long term (current) use of anticoagulants; Z79.82 Long term (current) use of aspirin; Z79.899 Other long term (current) drug therapy; Z79.84 Long term (current) use of oral hypoglycemic drugs; Z95.5 Presence of coronary angioplasty implant and graft; Z98.890 Other specified postprocedural states; Z87.891 Personal history of nicotine dependence; Z83.3 Family history of diabetes mellitus; Z82.49 Family history of ischemic heart disease and other diseases of the circulatory system; Z82.5 Family history of asthma and other chronic lower respiratory diseases
CPT/HCPCS: 36415 ×2; 37225; 71045; 75625; 75710; 80048; 81001; 82948 ×2; 85025; 85347 ×3; 85610; 85730; 93005; A4216; A4221; A4222; A4223 ×3; A4606; A4663; C1725 ×2; C1760; C1769; C1884; C1887; C1893; C1894 ×3; C2623 ×2; J1644 ×3; J2250; J3010; J3490 ×4; J7030; Q9967; 75716; 75774; 99156; 99157

== ENCOUNTER 2019-05-06 07:51 | Inpatient (IN) | payer OTHER ==
[~2019-05-06] VITALS: Ht 152.4 cm; Wt 58.5 kg
[~2019-05-06 07:51] MED LIST changes: -SODIUM CHLORIDE 0.9% 500ML 500 ML IV SCH
[2019-05-06] MEDS ORDERED: AMPICILLIN SODIUM/SULBACTAM NA 1.5GM VIAL ONE (08:42)
[2019-05-06] MEDS ORDERED: ACETAMINOPHEN 325 MG TAB ONE ×2 (08:43→08:54)
[2019-05-06] MEDS ORDERED: VANCOMYCIN 1GM+NS 250ML 250 ML IV ONE (08:43)
[2019-05-06] MEDS ORDERED: SODIUM CHLORIDE 0.9% 100 ML IV ONE (08:44)
[2019-05-06 08:52] LABS: BASOPHILS % (AUTO) 0.3 % (0.0-5.0); EOSINOPHILS % (AUTO) 1.8 % (0.0-8.0); HEMATOCRIT 41.7 % (42-54); LYMPHOCYTES % (AUTO) 32.4 % (21.0-51.0); MEAN CORPUSCULAR HEMOGLOBIN 28.9 pg (27.0-33.0); MEAN CORPUSCULAR HGB CONC 32.1 g/dL (32.0-36.0); MEAN CORPUSCULAR VOLUME 89.9 fL (79-99); MONOCYTES % (AUTO) 7.6 % (3.0-13.0); NEUTROPHILS % (AUTO) 57.3 % (40.0-77.0); PLATELET COUNT (AUTO) 238 K/uL (130-400); RED BLOOD CELL COUNT(AUTO) 4.64 MIL/uL (4.50-6.20); RED CELL DISTRIBUTION WIDTH 14.6 % (11.0-15.5); WHITE BLOOD COUNT (AUTO) 12.5 K/uL (4.8-10.8)
[2019-05-06 08:55] LABS: CREATININE 0.9 mg/dL (0.5-1.5); POTASSIUM 4.1 mmol/L (3.5-5.1)
[2019-05-06 09:01] LABS: ALBUMIN 3.8 g/dL (3.5-5.0); BILIRUBIN,TOTAL 0.3 mg/dL (0.2-1.0); TOTAL PROTEIN, SERUM 8.4 g/dL (6.0-8.3)
[2019-05-06] MEDS ORDERED: SODIUM CHLORIDE 0.9% 1000ML 1,000 ML IV ONE ×2 (09:04→10:21)
[2019-05-06] MEDS ORDERED: PANTOPRAZOLE SODIUM 40 MG TABLET.DR ONE (10:20)
[2019-05-06] MEDS ORDERED: HEPARIN SODIUM 5000UNIT/ML 1ML VIAL ONE (10:20)
[2019-05-06] MEDS: PANTOPRAZOLE SODIUM 40 MG TABLET.DR PO SCH (10:25)
[2019-05-06] MEDS ORDERED: ACETAMINOPHEN 325 MG TAB PO PRN ×2 (10:30→14:45)
[2019-05-06] MEDS ORDERED: MORPHINE SULFATE 2 MG/ML 1ML SYG IVP PRN (10:30)
[2019-05-06] MEDS ORDERED: HEPARIN SODIUM 5000UNIT/ML 1ML VIAL SQ SCH (10:30)
[2019-05-06] MEDS ORDERED: SODIUM CHLORIDE 0.9% 1000ML 1,000 ML IV SCH (10:30)
[2019-05-06] MEDS: INSULIN R PO SS1 SQ SCH ×3 (11:30→21:00)
[2019-05-06 12:11] VITALS: BP 135/78
[2019-05-06] MEDS ORDERED: MUPI15CR12 TP (12:48)
[2019-05-06] MEDS ORDERED: RIBO100T5 PO (12:48)
[2019-05-06] MEDS ORDERED: ATOR10 PO (12:48)
[2019-05-06] MEDS ORDERED: VANCOMYCIN PROTOCOL PER PHARMACY IV SCH (14:30)
[2019-05-06] MEDS ORDERED: AMPICILLIN 1GM+NS 50ML 50 ML IV SCH (14:30)
[2019-05-06] MEDS ORDERED: GUAIFENESIN-DM 200/20 MG 10 ML PO PRN (14:45)
[2019-05-06] MEDS ORDERED: IPRATROPIUM/ALBUTEROL SULFATE 3 ML SOLUTION IH PRN (14:45)
[2019-05-06] MEDS ORDERED: ACETAMINOPHEN-CODEINE 300/30MG TAB PO PRN (14:45)
[2019-05-06] MEDS ORDERED: NITROGLYCERIN 0.4 MG SL TAB SL PRN (14:45)
[2019-05-06] MEDS ORDERED: LACTULOSE 20 GM/30 ML UDCUP PO PRN (14:45)
[2019-05-06] MEDS ORDERED: HYDRALAZINE HCL 20 MG/ML VIAL IV PRN (14:45)
[2019-05-06] MEDS ORDERED: GLUCAGON 1MG KIT 1 MG ML IM PRN (15:00)
[2019-05-06] MEDS ORDERED: VANCOMYCIN 1GM+NS 250ML 250 ML IV SCH (15:00)
[2019-05-06] MEDS ORDERED: DEXTROSE 50%-WATER 50 ML DISP.SYRIN IV PRN (15:00)
[2019-05-06] MEDS: ONDANSETRON HCL 4 MG/2 ML VIAL IV PRN ×2 (15:15→22:30)
[2019-05-06] MEDS ORDERED: IOHEXOL-350 50ML VIAL IV ONE (15:22)
[2019-05-06] MEDS: HYDROCODONE/ACETAMINOPHEN 5/325 MG TAB PO PRN (16:14)
[2019-05-06 16:48] LABS: ABG BASE EXCESS -5.2 mmol/L (-2.0-3.0); ABG HCO3 18.9 mmol/L (21.0-28.0); ABG OXYGEN SATURATION 96.1 % (95.0-99.0); ABG PCO2 33 mmHg (35-48)
[2019-05-06 17:11] VITALS: BP 162/89
[2019-05-06 17:11] LABS: HEMATOCRIT 37.7 % (42-54); MEAN CORPUSCULAR HEMOGLOBIN 29.6 pg (27.0-33.0); MEAN CORPUSCULAR HGB CONC 32.4 g/dL (32.0-36.0); MEAN CORPUSCULAR VOLUME 91.5 fL (79-99); PLATELET COUNT (AUTO) 206 K/uL (130-400); RED BLOOD CELL COUNT(AUTO) 4.12 MIL/uL (4.50-6.20); RED CELL DISTRIBUTION WIDTH 14.6 % (11.0-15.5); WHITE BLOOD COUNT (AUTO) 14.2 K/uL (4.8-10.8)
[2019-05-06 18:00] VITALS: BP 123/76
[2019-05-06] MEDS: AMPICILLIN 1GM+NS 50ML 50 ML IV SCH (18:07)
[2019-05-06 19:52] VITALS: BP 142/77
[2019-05-06] MEDS: VANCOMYCIN 1GM+NS 250ML 250 ML IV SCH (20:44)
[2019-05-06] MEDS: HEPARIN SODIUM 5000UNIT/ML 1ML VIAL SQ SCH (20:47)
[2019-05-07] MEDS: AMPICILLIN 1GM+NS 50ML 50 ML IV SCH ×4 (00:12→17:06)
[2019-05-07 00:32] VITALS: BP 145/78
[2019-05-07 04:30] VITALS: BP 123/77
[2019-05-07 05:24] LABS: HEMATOCRIT 37.2 % (42-54); MEAN CORPUSCULAR HEMOGLOBIN 29.6 pg (27.0-33.0); MEAN CORPUSCULAR HGB CONC 32.5 g/dL (32.0-36.0); PLATELET COUNT (AUTO) 202 K/uL (130-400); RED BLOOD CELL COUNT(AUTO) 4.09 MIL/uL (4.50-6.20); RED CELL DISTRIBUTION WIDTH 14.6 % (11.0-15.5); WHITE BLOOD COUNT (AUTO) 11.2 K/uL (4.8-10.8)
[2019-05-07 05:57] LABS: POTASSIUM 3.6 mmol/L (3.5-5.1)
[2019-05-07] MEDS: INSULIN R PO SS1 SQ SCH ×4 (06:50→21:00)
[2019-05-07 07:46] VITALS: BP 146/82
[2019-05-07] MEDS: HEPARIN SODIUM 5000UNIT/ML 1ML VIAL SQ SCH ×2 (08:16→21:24)
[2019-05-07] MEDS: PANTOPRAZOLE SODIUM 40 MG TABLET.DR PO SCH (08:17)
[2019-05-07] MEDS: VANCOMYCIN 1GM+NS 250ML 250 ML IV SCH ×2 (08:17→21:17)
[2019-05-07] MEDS ORDERED: FUROSEMIDE 10 MG/ML 4ML VIAL IV SCH (09:45)
[2019-05-07] MEDS: ACETAMINOPHEN 325 MG TAB PO PRN (10:04)
[2019-05-07 11:44] VITALS: BP 100/68
--- NOTE | 2019-05-07 14:50 | NUR ---
1242 went into patients room to have IM Letter signed. I stood at patient's beside while he read the IM Letter and I answered questions/concerns. He stated " I would like to wait for my to sign it, because i don's understand it". At this time no visitors are allowed in the facility. I faxed IM Letter to [phone] with note "pt would like to wait for but no visitors allowed at this time"
[2019-05-07 15:57] VITALS: BP 104/64
[2019-05-07] MEDS: FUROSEMIDE 10 MG/ML 4ML VIAL IV SCH (17:05)
[2019-05-07 19:50] VITALS: BP 123/66
[2019-05-07] MEDS: METOPROLOL TARTRATE 25 MG TAB PO SCH (21:15)
[2019-05-07] MEDS: ATORVASTATIN CALCIUM 20 MG TABLET PO SCH (21:16)
[2019-05-08] VITALS (7 sets, daily range): BP systolic 83–139; BP diastolic 54–76
[2019-05-08] MEDS: AMPICILLIN 1GM+NS 50ML 50 ML IV SCH ×4 (00:45→17:27)
[2019-05-08 04:27] LABS: HEMATOCRIT 38.6 % (42-54); MEAN CORPUSCULAR HGB CONC 32.1 g/dL (32.0-36.0); MEAN CORPUSCULAR VOLUME 90.2 fL (79-99); PLATELET COUNT (AUTO) 209 K/uL (130-400); RED BLOOD CELL COUNT(AUTO) 4.28 MIL/uL (4.50-6.20); RED CELL DISTRIBUTION WIDTH 14.6 % (11.0-15.5); WHITE BLOOD COUNT (AUTO) 11.1 K/uL (4.8-10.8)
[2019-05-08] MEDS: FUROSEMIDE 10 MG/ML 4ML VIAL IV SCH (05:31)
[2019-05-08] MEDS: INSULIN R PO SS1 SQ SCH ×4 (05:52→21:00)
[2019-05-08] MEDS: POTASSIUM CHLORIDE 20 MEQ ERTAB PO SCH ×3 (06:35→15:38)
--- NOTE | 2019-05-08 08:15 | NUR ---
AM ASSESSMENT PT LAYING IN BED, RESTING. A/O X 3. SOB ON EXERTION. NO DISTRESS NOTE. O2 NC @ 2L. PT REMOVES O2 NC. REMINDED PT TO KEEP NC ON. DENIES CHEST PAIN OR DISCOMFORT. DENIES PAIN TO FEET. TELE: PACED. DENIES N/V AND/OR DIARRHEA. INSTRUCTED TO CALL FOR ASSISTANCE. CALL STEVEN W/IN REACH.
[2019-05-08] MEDS: HYDROCODONE/ACETAMINOPHEN 5/325 MG TAB PO PRN (10:02)
[2019-05-08] MEDS: BENAZEPRIL HCL 10 MG TABLET PO SCH (10:03)
[2019-05-08] MEDS: METOPROLOL TARTRATE 25 MG TAB PO SCH ×2 (10:03→19:48)
[2019-05-08] MEDS: PANTOPRAZOLE SODIUM 40 MG TABLET.DR PO SCH (10:04)
[2019-05-08] MEDS: VANCOMYCIN 1GM+NS 250ML 250 ML IV SCH ×2 (10:05→19:49)
[2019-05-08] MEDS: HEPARIN SODIUM 5000UNIT/ML 1ML VIAL SQ SCH ×2 (10:16→19:56)
[2019-05-08] MEDS ORDERED: SODIUM CHLORIDE 0.9% 500ML 500 ML IV SCH (14:00)
[2019-05-08] MEDS: ATORVASTATIN CALCIUM 20 MG TABLET PO SCH (19:48)
[2019-05-09] VITALS (8 sets, daily range): BP systolic 102–150; BP diastolic 58–79
--- NOTE | 2019-05-09 | NUR ---
PT STATED IMPROVEMENT. NO PAIN STATED. NO DISTRESS NOTED. PT CONTINUES ON ABTS. AAO3. PERRLA. REQUIRES ASSISTANCE. IV PATENT.
[2019-05-09] MEDS: AMPICILLIN 1GM+NS 50ML 50 ML IV SCH ×4 (00:37→17:59)
[2019-05-09 05:04] LABS: HEMATOCRIT 34.1 % (42-54); MEAN CORPUSCULAR HEMOGLOBIN 29.4 pg (27.0-33.0); MEAN CORPUSCULAR HGB CONC 32.6 g/dL (32.0-36.0); MEAN CORPUSCULAR VOLUME 90.5 fL (79-99); PLATELET COUNT (AUTO) 204 K/uL (130-400); RED BLOOD CELL COUNT(AUTO) 3.77 MIL/uL (4.50-6.20); RED CELL DISTRIBUTION WIDTH 14.1 % (11.0-15.5); WHITE BLOOD COUNT (AUTO) 8.8 K/uL (4.8-10.8)
[2019-05-09 05:07] LABS: POTASSIUM 3.5 mmol/L (3.5-5.1)
[2019-05-09] MEDS: INSULIN R PO SS1 SQ SCH ×4 (06:32→21:00)
[2019-05-09] MEDS: VANCOMYCIN 1GM+NS 250ML 250 ML IV SCH ×2 (09:42→22:06)
[2019-05-09] MEDS: HEPARIN SODIUM 5000UNIT/ML 1ML VIAL SQ SCH ×2 (09:43→20:24)
[2019-05-09] MEDS: METOPROLOL TARTRATE 25 MG TAB PO SCH ×2 (09:43→20:22)
[2019-05-09] MEDS: PANTOPRAZOLE SODIUM 40 MG TABLET.DR PO SCH (09:44)
[2019-05-09] MEDS: BENAZEPRIL HCL 10 MG TABLET PO SCH (09:44)
[2019-05-09] MEDS ORDERED: AMOX-429 PO (13:15)
[2019-05-09] MEDS: ACETAMINOPHEN 325 MG TAB PO PRN (16:03)
[2019-05-09] MEDS: ATORVASTATIN CALCIUM 20 MG TABLET PO SCH (20:22)
[2019-05-10] MEDS: AMPICILLIN 1GM+NS 50ML 50 ML IV SCH ×4 (01:20→17:31)
[2019-05-10 04:01] VITALS: BP 119/81
[2019-05-10 04:33] LABS: BASOPHILS % (AUTO) 0.1 % (0.0-5.0); EOSINOPHILS % (AUTO) 2.5 % (0.0-8.0); HEMATOCRIT 33.9 % (42-54); LYMPHOCYTES % (AUTO) 33.5 % (21.0-51.0); MEAN CORPUSCULAR HEMOGLOBIN 29.6 pg (27.0-33.0); MEAN CORPUSCULAR VOLUME 89.4 fL (79-99); MONOCYTES % (AUTO) 9.7 % (3.0-13.0); NEUTROPHILS % (AUTO) 53.9 % (40.0-77.0); PLATELET COUNT (AUTO) 220 K/uL (130-400); RED BLOOD CELL COUNT(AUTO) 3.79 MIL/uL (4.50-6.20); RED CELL DISTRIBUTION WIDTH 14.1 % (11.0-15.5); WHITE BLOOD COUNT (AUTO) 7.7 K/uL (4.8-10.8)
[2019-05-10 05:02] LABS: CREATININE 0.8 mg/dL (0.5-1.5); POTASSIUM 3.5 mmol/L (3.5-5.1)
[2019-05-10] MEDS: INSULIN R PO SS1 SQ SCH ×3 (05:58→16:30)
[2019-05-10 07:00] VITALS: BP 148/82
[2019-05-10] MEDS: VANCOMYCIN 1GM+NS 250ML 250 ML IV SCH (08:20)
[2019-05-10] MEDS: PANTOPRAZOLE SODIUM 40 MG TABLET.DR PO SCH (10:03)
[2019-05-10] MEDS: BENAZEPRIL HCL 10 MG TABLET PO SCH (10:03)
[2019-05-10] MEDS: METOPROLOL TARTRATE 25 MG TAB PO SCH (10:03)
[2019-05-10] MEDS: HEPARIN SODIUM 5000UNIT/ML 1ML VIAL SQ SCH (10:04)
[2019-05-10 11:00] VITALS: BP 161/93
[2019-05-10] MEDS: ACETAMINOPHEN 325 MG TAB PO PRN (12:02)
--- NOTE | 2019-05-10 13:27 | NUR ---
DC PLAN PATIENT LIVES WITH SPOUSE. INDEPENDENT ABLE TO PERFORM ADL'S. PATIENT USES A CANE AND WALKER. SAFE TO RETURN HOME. Addendum: 05/10/19 at 1328 by SABINA SUTTON RN CM Amended: Links added.
[2019-05-10 16:02] VITALS: BP 131/73
[2019-05-11] MEDS ORDERED: MECO10005 PO (22:35)
[2019-05-11] MEDS ORDERED: MUPI22OI2 TP (22:35)
== END 2019-05-10 18:45 | disposition home or self-care (01) | DRG 871 ==
LOC: EDH 07:51 → EDHIP 09:45 → OBSVTOIN 09:45 → 4CH 11:48 → 2DH 17:19
PROVIDERS: ADMIT Internal Medicine Critical Care Medicine; ATTEND Internal Medicine Critical Care Medicine
DX: A41.9 Sepsis, unspecified organism (principal); I50.23 Acute on chronic systolic (congestive) heart failure; E11.52 Type 2 diabetes mellitus with diabetic peripheral angiopathy with gangrene; L08.9 Local infection of the skin and subcutaneous tissue, unspecified; K05.219 Aggressive periodontitis, localized, unspecified severity; I25.10 Atherosclerotic heart disease of native coronary artery without angina pectoris; E78.5 Hyperlipidemia, unspecified; I11.0 Hypertensive heart disease with heart failure; I25.5 Ischemic cardiomyopathy; Z79.01 Long term (current) use of anticoagulants; Z95.0 Presence of cardiac pacemaker; Z98.61 Coronary angioplasty status; Z95.1 Presence of aortocoronary bypass graft
CPT/HCPCS: 36415; 36600; 70487; 71045; 73630; 80048; 80053; 80202; 82803; 82948; 83605; 85025; 85027; 87040; 87088; 93925; 94664; G0378; J0290; J0295; J1644; J1940; J2405; J3370; J7030; J7040; Q9967